=== PATIENT | male | born 1995 | race Caucasian/White ===

== ENCOUNTER 2017-08-15 22:43 | Emergency (ER) | payer OTHER ==
[2017-08-16] MEDS ORDERED: LIDOCAINE 1% MDV 20ML VIAL SC (00:45)
== END 2017-08-16 01:52 | disposition home or self-care (01) ==
LOC: M ED 22:43
DX: S61.411A Laceration without foreign body of right hand, initial encounter (principal); W26.8XXA Contact with other sharp object(s), not elsewhere classified, initial encounter; Y92.9 Unspecified place or not applicable; Y93.9 Activity, unspecified
CPT/HCPCS: 73130

== ENCOUNTER 2017-11-05 18:32 | Emergency (ER) | payer OTHER ==
[2017-11-05] MEDS: IBUPROFEN 600 MG TAB PO (20:30)
[2017-11-05] MEDS: METHOCARBAMOL 500 MG TAB PO (20:30)
== END 2017-11-05 20:41 | disposition home or self-care (01) ==
LOC: M ED 18:32
DX: S16.1XXA Strain of muscle, fascia and tendon at neck level, initial encounter (principal); X58.XXXA Exposure to other specified factors, initial encounter; Y92.89 Other specified places as the place of occurrence of the external cause
CPT/HCPCS: 99282

== ENCOUNTER 2017-12-30 20:48 | Emergency (ER) | payer OTHER ==
[2017-12-30] MEDS: ACETAMINOPHEN TAB 650MG DOSE (2X325MG) PO (23:30)
[2017-12-31] MEDS: CEPHALEXIN 500 MG CAP PO (00:15)
== END 2017-12-31 00:37 | disposition home or self-care (01) ==
LOC: M ED 20:48
DX: J02.0 Streptococcal pharyngitis (principal)
CPT/HCPCS: 87880

== ENCOUNTER 2020-02-27 21:24 | Emergency (ER) | payer OTHER ==
[~2020-02-27] VITALS: Ht 175.3 cm; Wt 78.9 kg
[~2020-02-27 21:24] MED LIST: IBUP-1022 PO; KEFL500C17 PO; ROBA500T PO
[2020-02-27] MEDS ORDERED: D-ME118L PO (21:33)
[2020-02-27] MEDS ORDERED: BENZ200C70 PO (23:21)
[2020-02-27] MEDS ORDERED: VENTAER INH (23:21)
[2020-02-27] MEDS ORDERED: MUCI600T31 PO (23:21)
[2020-02-27] MEDS ORDERED: ALBUTEROL 90 MCG/ACT 8GM HFA INHALER INH ONE (23:30)
[2020-02-27 23:54] VITALS: BP 125/77
== END 2020-02-27 23:55 | disposition home or self-care (01) ==
LOC: M ED 21:24
DX: J06.9 Acute upper respiratory infection, unspecified (principal); B34.9 Viral infection, unspecified; F17.200 Nicotine dependence, unspecified, uncomplicated; Z79.899 Other long term (current) drug therapy